=== PATIENT | female | born 1970 | race Caucasian/White ===

== ENCOUNTER 2016-10-07 18:27 | Emergency (ER) | payer MEDICARE, OTHER | END 2016-10-07 21:10 | disposition home or self-care (01) | LOC: FER 18:27 | DX: S81.811A Laceration without foreign body, right lower leg, initial encounter (principal); W22.03XA Walked into furniture, initial encounter; Y92.009 Unspecified place in unspecified non-institutional (private) residence as the place of occurrence of the external cause ==

== ENCOUNTER 2016-10-14 14:20 | Emergency (ER) | payer MEDICARE, OTHER ==
[2016-10-14 15:21] LABS: AMPHETAMINES NEGATIVE (NEGATIVE); BARBITURATES NEGATIVE (NEGATIVE); BENZODIAZEPINES NEGATIVE (NEGATIVE); COCAINE NEGATIVE (NEGATIVE); MARIJUANA (THC) NEGATIVE (NEGATIVE); METHADONE NEGATIVE (NEGATIVE); TRICYCLIC ANTIDEPRESSANT POSITIVE (NEGATIVE)
[2016-10-14 15:46] LABS: ALBUMIN 3.1 g/dL (3.5-5.0); BILIRUBIN - TOTAL 0.2 mg/dL (0.1-1.0); GLOBULIN (CALCULATION) 2.4 g/dL (2.2-4.2); POTASSIUM 3.8 mmol/L (3.5-5.1); TOTAL PROTEIN 5.5 g/dL (6.4-8.3)
[2016-10-14 15:47] LABS: ACETAMINOPHEN (TYLENOL) 5.6 ug/mL (10.0-30.0); ALCOHOL (ETOH) MEDICAL NONE DETECTED; SALICYLATE 24 ug/mL (0-300)
[2016-10-14 16:10] LABS: BASOPHIL 0.2 % (0-2); EOSINOPHIL 1.3 % (0-5); HCT 41.6 % (37.0-47.0); HGB 13.7 g/dl (12.5-16.0); LYMPHOCYTE 29.8 % (15-48); MCH 31.1 pg (25.0-31.0); MCHC 32.9 g/dL (32.0-36.0); MCV 94.3 fL (78.0-100.0); MONOCYTE 8.5 % (0-12); MPV 10.9 fL (6.0-9.5); NEUTROPHIL 60.2 % (41-80); PLT 227 K/uL (150-400); RBC 4.41 M/uL (4.20-5.40); RDW 14.4 % (11.5-14.0); WBC 5.4 K/uL (4.0-10.5)
== END 2016-10-14 17:01 | disposition home or self-care (01) ==
LOC: FER 14:20
PROVIDERS: Internal Medicine
DX: R41.0 Disorientation, unspecified (principal); T40.2X5A Adverse effect of other opioids, initial encounter; F11.10 Opioid abuse, uncomplicated; G89.29 Other chronic pain; F32.9 Major depressive disorder, single episode, unspecified; E03.9 Hypothyroidism, unspecified; J45.909 Unspecified asthma, uncomplicated; K21.9 Gastro-esophageal reflux disease without esophagitis; Z88.1 Allergy status to other antibiotic agents; Z88.5 Allergy status to narcotic agent; Z88.8 Allergy status to other drugs, medicaments and biological substances; Z91.013 Allergy to seafood
CPT/HCPCS: 36415; 70450; 80053; 80305; 85025; G0480; J1885